=== PATIENT | female | born 1935 | race Caucasian/White ===

== ENCOUNTER 2017-05-01 00:08 | Emergency (ER) | payer OTHER, MEDICARE ==
[~2017-05-01] VITALS: Ht 162.6 cm; Wt 43.5 kg
[2017-05-01 00:38] VITALS: BP_SYST 166
[2017-05-01 01:58] VITALS: BP_SYST 158
== END 2017-05-01 01:58 | disposition home or self-care (01) ==
LOC: SED 00:08
DX: S52.592A Other fractures of lower end of left radius, initial encounter for closed fracture (principal); Z88.1 Allergy status to other antibiotic agents; E78.00 Pure hypercholesterolemia, unspecified; W10.8XXA Fall (on) (from) other stairs and steps, initial encounter; Y93.01 Activity, walking, marching and hiking; Y92.89 Other specified places as the place of occurrence of the external cause; Y99.8 Other external cause status
CPT/HCPCS: 99284

== ENCOUNTER 2017-05-02 09:59 | Day surgery (SDC) | payer OTHER, BC ==
[2017-05-01 15:14] LABS: BASOPHILS % (AUTO) 0.2 % (0.0-2.0); EOSINOPHILS # (AUTO) 0.1 K/uL (0.0-0.4); EOSINOPHILS % (AUTO) 0.9 % (0.0-4.0); HEMATOCRIT 39.1 % (36-48); LYMPHOCYTES # (AUTO) 1.7 K/uL (1.0-5.5); LYMPHOCYTES % (AUTO) 18.6 % (20.5-51.5); MEAN CORPUSCULAR HEMOGLOBIN 30 pg (27-31); MEAN CORPUSCULAR HGB CONC 33 % (32-36); MEAN CORPUSCULAR VOLUME 92 fL (79.0-98.0); MONOCYTES # (AUTO) 0.8 K/uL (0.0-1.0); MONOCYTES % (AUTO) 8.7 % (1.7-9.3); NEUTROPHILS # (AUTO) 6.6 K/uL (1.8-7.7); NEUTROPHILS % (AUTO) 71.6 % (40.0-70.0); PLATELET COUNT (AUTO) 231 K/uL (130-430); RED BLOOD CELL COUNT(AUTO) 4.28 MIL/uL (4.2-6.2); RED CELL DISTRIBUTION WIDTH 12.6 % (9.0-15.0); WHITE BLOOD COUNT (AUTO) 9.2 K/uL (4.8-10.8)
[2017-05-01 15:17] LABS: BILIRUBIN,URINE NEGATIVE (NEGATIVE); COLOR,URINE YELLOW (YELLOW); GLUCOSE,URINE NEGATIVE (NEGATIVE); KETONES,URINE NEGATIVE (NEGATIVE); LEUKOCYTE ESTERASE ,URINE TRACE (NEGATIVE); NITRITE, URINE NEGATIVE (NEGATIVE); PH,URINE 5.5 (5.0-8.0); PROTEIN URINE NEGATIVE (NEGATIVE); UROBILINOGEN,URINE 0.2 (0.2-1.0)
[2017-05-01 15:20] LABS: BLOOD, URINE TRACE (NEGATIVE)
[2017-05-01 15:21] LABS: ANION GAP 3 (5-15); CALCIUM 9.7 mg/dL (8.4-11.0); CHLORIDE 102 mmol/L (98-107); GLUCOSE 106 mg/dL (70-99); SODIUM SERUM 136 mmol/L (136-145); UREA NITROGEN, BLOOD 15 mg/dL (8-21)
[2017-05-01 15:22] LABS: CLARITY/URINE SLIGHTLY HAZY (CLEAR)
[2017-05-01 15:30] LABS: BACTERIA,URINE FEW /HPF (None Seen); MUCUS,URINE 1+ /LPF (None Seen)
[2017-05-01 15:31] LABS: HYALINE CASTS, URINE 0-10 /LPF (None Seen)
[~2017-05-02] VITALS: Ht 162.6 cm; Wt 48.5 kg
[2017-05-02] MEDS ORDERED: CEFAZOLIN 1 GM IVPB PREMIX 50 ML IV ONE (10:45)
[2017-05-02] MEDS ORDERED: POLYMYXIN 500,000/BACIT.10,000 UNITS in NS IRR 1 L IR ONE (13:51)
[2017-05-02] MEDS ORDERED: LR 1,000 ML IV SCH ×2 (14:03→14:47)
[2017-05-02] MEDS ORDERED: MEPERIDINE HCL/PF 50 MG/ML AMP IVP PRN ×2 (14:15)
[2017-05-02] MEDS ORDERED: MEPERIDINE HCL/PF 25 MG/ML DISP.SYRIN IVP PRN (14:15)
[2017-05-02] MEDS ORDERED: METOCLOPRAMIDE HCL 10 MG/2 ML VIAL IVP PRN (14:15)
[2017-05-02] MEDS ORDERED: HYDROcodone/ACETAMIN 5-325 MG TAB (NORCO/ VICODIN) PO PRN (15:00)
[2017-05-02] MEDS ORDERED: DIPHENHYDRAMINE HCL 25 MG CAPSULE PO PRN (15:00)
[2017-05-02] MEDS ORDERED: ACETAMINOPHEN 325 MG TABLET PO PRN (15:00)
[2017-05-02 15:34] VITALS: BP_SYST 137
[2017-05-02] MEDS ORDERED: ACETAMINOPHEN 500 MG TABLET ONE (15:36)
== END 2017-05-02 16:10 | disposition home or self-care (01) ==
LOC: SOR 09:59 → SMU 10:00 → SOR 16:10
PROVIDERS: ATTEND Orthopaedic Surgery
DX: S52.572A Other intraarticular fracture of lower end of left radius, initial encounter for closed fracture (principal); X58.XXXA Exposure to other specified factors, initial encounter; Y93.9 Activity, unspecified; Y92.89 Other specified places as the place of occurrence of the external cause; Y99.9 Unspecified external cause status; J44.9 Chronic obstructive pulmonary disease, unspecified; Z88.8 Allergy status to other drugs, medicaments and biological substances; Z90.710 Acquired absence of both cervix and uterus; Z98.890 Other specified postprocedural states; E78.5 Hyperlipidemia, unspecified; M81.0 Age-related osteoporosis without current pathological fracture
CPT/HCPCS: 20690; 25605; 36415; 71020; 76000; 80048; 81000; 85025; 87086; 93005; J0690; J7120